=== PATIENT | female | born 1975 | race African-American/Black ===

== ENCOUNTER 2023-11-25 07:32 | Emergency (ER) | payer SELFPAY ==
[2023-11-25] MEDS ORDERED: cloNIDine 0.2 MG TAB ONE (08:08)
[2023-11-25] MEDS ORDERED: hydrALAZINE 10 MG TAB ONE (09:15)
== END 2023-11-25 10:03 | disposition home or self-care (01) ==
LOC: NAV ERS 07:32
DX: R05.9 Cough, unspecified (principal); R09.89 Other specified symptoms and signs involving the circulatory and respiratory systems; R51.9 Headache, unspecified; I10 Essential (primary) hypertension
CPT/HCPCS: 99283